=== PATIENT | female | born 1970 | race Caucasian/White ===

== ENCOUNTER → 2019-07-13 | Outpatient (CLI) | payer OTHER ==
--- NOTE | 2019-07-13 16:15 | CT ---
EXAM DESCRIPTION: Chest w/Contrast CLINICAL HISTORY: 48 years Female, COUGH COMPARISON: None. TECHNIQUE: CT images through the chest with IV contrast. Multiplanar reformations provided. This exam was performed according to our departmental dose-optimization program, which includes automated exposure control, adjustment of the mA and/or kV according to patient size and/or use of iterative reconstruction technique. CT CHEST FINDINGS: Heart and mediastinum: Normal heart size. No pericardial effusion. Unremarkable esophagus. No significant atherosclerosis. No pathologically enlarged mediastinal or hilar lymph nodes. Thyroid Gland: Normal. Lungs: Normal. Airways: Normal. Pleura: Normal. Musculoskeletal and Soft Tissues: No acute fracture or aggressive appearing osseous lesion. Sclerotic lesion in T5 vertebral body likely representing benign bone island. Soft tissues unremarkable. Subphrenic Structures: Multiple hypodense lesions with average Hounsfield 35 measuring up to 2.1 cm the liver, some of which demonstrate mild nodular peripheral enhancement and likely represent hemangiomas. 6 mm hyperdense lesion in the posterior spleen likely representing cyst or hemangioma. IMPRESSION: 1. No acute abnormality of the chest. Electronically signed by: Darrell Haro MD 07/13/2019 4:14 PM CDT
== END ==
LOC: GMAJ 11:35
PROVIDERS: ATTEND Family Medicine
DX: R05 Cough (principal); D50.0 Iron deficiency anemia secondary to blood loss (chronic); R50.9 Fever, unspecified; I10 Essential (primary) hypertension

== ENCOUNTER → 2019-07-15 | Outpatient (CLI) | payer OTHER ==
--- NOTE | 2019-07-15 20:17 | US ---
EXAM DESCRIPTION: Venous,Lower Extremity LT: ULTRASOUND. CLINICAL HISTORY: LOCALIZED SWELLING MASS AND LUMP. Left lower extremity. COMPARISON: None Available. TECHNIQUE: Gonzales-scale and doppler sonographic evaluation of the deep venous system of the left lower extremity. FINDINGS: Doppler evaluation shows normal color flow and normal phasicity and augmentation of the left common femoral vein, femoral vein, popliteal vein, greater saphenous vein, junction with the CFV. Also normal color flow and normal phasicity and augmentation of the peroneal, and posterior tibial vein. The left lower extremity deep veins were completely compressible; normal occlusion with transducer pressure. Gonzales-scale survey showed no echogenic thrombus within these veins. IMPRESSION: 1. Duplex ultrasound evaluation of the left lower extremity deep venous system showing no evidence of thrombosis. Electronically signed by: Mynor Manning MD 07/15/2019 8:16 PM CDT
== END ==
LOC: US 13:21
PROVIDERS: ATTEND Family Medicine
DX: R22.42 Localized swelling, mass and lump, left lower limb (principal)

== ENCOUNTER → 2019-09-03 | Outpatient (CLI) | payer OTHER | LOC: GMAJ 14:46 | PROVIDERS: ATTEND Family Medicine | DX: D50.0 Iron deficiency anemia secondary to blood loss (chronic) (principal) ==

== ENCOUNTER → 2019-11-20 | Outpatient (CLI) | payer BC | LOC: LAB.O 18:33 | DX: K65.1 Peritoneal abscess (principal) ==